=== PATIENT | female | born 1945 | race Two or more races ===

== ENCOUNTER 2024-11-26 14:48 | Inpatient (IN) | payer OTHER ==
[~2024-11-26] VITALS: Ht 157.5 cm; Wt 75.7 kg
[2024-11-26 15:28] LABS: Basophils # (auto) 0 10 ^3/uL (0-0.2); Basophils % (auto) 0.3 % (0.0-2.0); Eosinophils # (auto) 0.1 10 ^3/uL (0-0.8); Eosinophils % (auto) 1.1 % (0.0-7.0); Hematocrit 43.9 % (36.0-46.0); Hemoglobin 14.9 g/dL (12.2-16.2); Lymphocytes # (auto) 1.3 10 ^3/uL (0.4-5.4); Lymphocytes % (auto) 11.6 % (10.0-50.0); Mean Corpuscular Hgb Conc. 33.9 g/dL (32.0-36.0); Mean Corpuscular Volume 97.6 fL (80.0-100.0); Monocytes # (auto) 0.6 10 ^3/uL (0-1.3); Monocytes % (auto) 5.3 % (0.0-12.0); Neutrophils # (auto) 9.4 10 ^3/uL (1.6-8.6); Neutrophils % (auto) 81.7 % (37.0-80.0); Nucleated Red Blood Cells % 0.1 %; Platelet Count (auto) 266 10^3/uL (140-450); Red Cell Distribution Width 15.1 % (11.8-14.3); White Blood Cell 11.5 10^3/uL (4.4-10.8)
--- NOTE | 2024-11-26 15:32 | ED.PDOC ---
History of Present Illness HPI Comments 79 y/o F is BIBA from [facility]) for c/o irregular heart rate and elevated troponin levels, today. Per EMS report, patient is a transfer from [facility] after being found with irregular heart rate and elevated troponin levels during leg MRI visit for chronic right-hip issue she has had for the past 6 weeks. Patient, at time of assessment, reports only having "heart burn, currently. Prior to ED arrival, patient was stated to have not eaten anything all day, today, and was given morphine at [facility] prior to transfer. She denies having any chest pain, shortness of breath, or other associated symptoms at this time. Time Seen by MD: 15:00 Reviewed Notes: Nurses Notes, Engine Assembler Notes, Medications, Allergies Allergies: Coded Allergies: NO KNOWN ALLERGIES (Unverified , 11/26/24) Information Source: Patient, Transfer Record, Emergency Med Personnel Mode of Arrival: EMS Severity: Moderate Timing: Hours Duration: Since onset Prehospital treatment: 12 Lead EKG, Appeals Examiner Past Medical History Surgical History: Denies all surgeries REGIONAL EDUCATION COORDINATOR History: Denies all REGIONAL EDUCATION COORDINATOR Hx Family History Family History: Unknown Social History Smoker: Non-Smoker Alcohol: Denies ETOH Use Drugs: Denies Drug Use Lives In: Home All Other Systems: Reviewed and Negative (Comprehensive systems review obtained and negative except for what is stated in the HPI.) Physical Exam General Appearance: No Apparent Distress, Obese HEENT: Normal ENT Inspection, Pharynx Normal, TMs Normal Neck: Full Range of Motion, Non-Tender, Normal, Normal Inspection Respiratory: Chest Non-Tender, Lungs Clear, No Accessory Muscle Use, No Respiratory Distress, Normal Breath Sounds Cardiovascular: No Edema, No JVD, No Murmur, No Gallop, Normal Peripheral Pulses, Regular Rate/Rhythm Breast Exam: Deferred Gastrointestinal: No Organomegaly, Non Tender, No Pulsatile Mass, Normal Bowel Sounds, Soft Genitalia: Deferred Pelvic: Deferred Rectal: Deferred Extremities: No calf tenderness, Normal capillary refill, Normal inspection, Normal range of motion, Non-tender, No pedal edema Musculoskeletal : Apperance: Normal Neurologic: Alert, oil well logging engineer II-XII nml as Tested, No Motor Deficits, Normal Affect, Normal Mood, No Sensory Deficits Cerebellar Function: Normal Reflexes: Normal Skin: Dry, Normal Color, Warm Lymphatic: No Adenopathy Was a procedure done? Was a procedure done?: No Differential Dx Considerations may include: IN, PE, ACS, Arrhythmia, AFIB, among others X-Ray, Labs, Meds, VS Vital Signs Date Time Temp Pulse Resp B/P (MAP) Pulse Ox O2 Delivery O2 Flow Rate FiO2 11/26/24 19:25 92 16 92 Room Air* 0 21 11/26/24 18:00 93 18 119/67 (84) 95 11/26/24 17:51 100 11/26/24 17:08 98.5 90 14 130/87 (101) 93 98.5 11/26/24 17:08 90 14 93 Room Air* 0 21 11/26/24 15:52 94 11/26/24 14:51 88 11/26/24 14:50 97.9 92 20 190/92 (124) 94 97.9 Lab Test 11/26/24 18:19 11/26/24 16:09 11/26/24 15:17 Range/Units Troponin I High Sensitivity 206 *H 240 *H 239 *H </=34 ng/L White Blood Count 11.5 H 4.4-10.8 10^3/uL Red Blood Count 4.50 4.0-5.20 10^6/uL Hemoglobin 14.9 12.2-16.2 g/dL Hematocrit 43.9 36.0-46.0 % Mean Corpuscular Volume 97.6 80.0-100.0 fL Mean Corpuscular Hemoglobin 33.0 H 28.0-32.0 pg Mean Corpuscular Hemoglobin Concent 33.9 32.0-36.0 g/dL Red Cell Distribution Width 15.1 H 11.8-14.3 % Platelet Count 266 140-450 10^3/uL Mean Platelet Volume 7.1 6.9-10.8 fL Neutrophils (%) (Auto) 81.7 H 37.0-80.0 % Lymphocytes (%) (Auto) 11.6 10.0-50.0 % Monocytes (%) (Auto) 5.3 0.0-12.0 % Eosinophils (%) (Auto) 1.1 0.0-7.0 % Basophils (%) (Auto) 0.3 0.0-2.0 % Neutrophils # (Auto) 9.4 H 1.6-8.6 10 ^3/uL Lymphocytes # (Auto) 1.3 0.4-5.4 10 ^3/uL Monocytes # (Auto) 0.6 0-1.3 10 ^3/uL Eosinophils # (Auto) 0.1 0-0.8 10 ^3/uL Basophils # (Auto) 0 0-0.2 10 ^3/uL Nucleated Red Blood Cells 0.1 % Sodium Level 142 136-145 mmol/L Potassium Level 3.4 L 3.5-5.1 mmol/L Chloride Level 99 98-107 mmol/L Carbon Dioxide Level 36 H 20-31 mmol/L Anion Gap 7 5-15 Blood Urea Nitrogen 23 9-23 mg/dL Creatinine 0.92 0.550-1.02 mg/dL Glomerular Filtration Rate Calc 63 >90 mL/min BUN/Creatinine Ratio 25.0 H 10.0-20.0 Serum Glucose 146 H 74-106 mg/dL Calcium Level 9.4 8.7-10.4 mg/dL Time of 1ST Reevaluation: 15:30 Reevaluation 1ST: Unchanged Patient Education/Counseling: Diagnosis, Treatment Family Education/Counseling: No Family Present Additional Information Previous medical encounters reviewed: n/a The following tests were ordered, and results were reviewed by me: troponin, CXR, CBC, BMP Additional Information was gathered from interviewing the following independent historians: EMS, transferring facility provider I reviewed and agreed with the following test results read by other providers: CXR I discussed treatment and results with medical personnel and: Patient Departure 1 Departure Time of Disposition: 20:13 (Patient presenting with new onset AFib from [facility]. [facility] with a capacity so we accepted the patient. We will admit patient here for further workup and expert consultation) Impression: Primary Impression: New onset atrial fibrillation Additional Impressions: Shortness of breath Right hip pain Disposition: ADMITTED INPATIENT Admit to: Med Surg Condition: Serious Critical Care Note Critical Care Time?: No Stability Stability form required: No Heart Score Heart Score: Heart Score Response (Comments) Value History Highly Suspicious 2 EKG Normal 0 Age >65 2 Risk Factors >3 or Hx ASHD 2 Troponin 1-2 x's Normal limit 1 Total 7 I personally scribed for TIMOTHY ZAMORA MD ([email or web address]) on 11/26/24 at 15:32. Electronically submitted by Candido Prakash ([email or web address]). TIMOTHY ZAMORA MD Nov 26, 2024 15:32
[2024-11-26 15:37] LABS: Anion Gap 7 (5-15); Chloride 99 mmol/L (98-107); Sodium 142 mmol/L (136-145)
[2024-11-26 15:38] LABS: Calcium 9.4 mg/dL (8.7-10.4)
[2024-11-26 15:40] LABS: Carbon Dioxide 36 mmol/L (20-31); Potassium 3.4 mmol/L (3.5-5.1)
[2024-11-26 15:43] LABS: Blood Urea Nitrogen 23 mg/dL (9-23); Glucose 146 mg/dL (74-106)
--- NOTE | 2024-11-26 15:54 | ECG ---
[facility] Test Date: 2024-11-26 Test Time: 15:52:45 Pat Name: DALLAS SUN Department: ER Room: 0278T Gender: F Manager Web: CRISTIAN : 1945 Requested By: TIMOTHY ZAMORA Order Number: [id number] Reading MD: Alex Gongora Measurements Intervals [place] Rate: 94 P: 9 GA: 131 QRS: -61 QRSD: 130 T: 53 QT: 405 QTc: 507 Interpretive Statements Sinus rhythm Left bundle branch block Electronically Signed On 11-29-2024 20:40:32 PDT by Alex Gongora Please click the below link to view image of tracing.
--- NOTE | 2024-11-26 16:01 | DVH ---
EXAM: XY CHEST PORTABLE HISTORY: sob COMPARISON: None TECHNIQUE: Portable AP view of the chest was performed. FINDINGS: No pneumothorax, consolidative infiltrates, or pulmonary edema. The heart is not enlarged. There are postoperative changes of CABG. There is right glenohumeral osteoarthritis with prominent marginal ost eophytes extending inferiorly. The left humeral head is high-riding, consistent with significant rota tor cuff tendinopathy. There is thoracic spondylosis. There is thoracolumbar levoscoliosis. IMPRESSION: Postoperative changes of the heart without evidence of acute intrathoracic process.
[2024-11-26 17:08] VITALS: PULSE 90; RESP 14; O2SAT 93
[2024-11-26 19:25] VITALS: PULSE 92; RESP 16; O2SAT 92
[2024-11-26] MEDS: ACETAMINOPHEN 325 MG TAB PO ONE (20:24)
[2024-11-26 20:43] LABS: Urine Bacteria None Seen /hpf (None Seen)
[2024-11-26 20:50] LABS: Urine Blood Negative /uL (Negative); Urine Clarity Clear (Clear); Urine Color Colorless (Yellow); Urine Protein, UAD Negative (Negative); Urine Specific Gravity 1.009 (1.001-1.035); Urine Squamous Epithelial Cell FEW /hpf (<5); Urine Urobilinogen Normal (Negative); Urine WBC 2 /HPF (0-5); Urine pH 7.5 (5.0-9.0)
[2024-11-27] VITALS (7 sets, daily range): BP systolic 128–163; BP diastolic 69–87; PULSE 59–93; RESP 16–19; TEMP 97.5–98.6; O2SAT 93–97
[2024-11-27] MEDS ORDERED: ACETAMINOPHEN 325 MG TAB PO PRN (02:00)
--- NOTE | 2024-11-27 02:03 | DVHHPRES ---
History of Present Illness Resident Creating Document: PRAKASH CLAY RESIDENT History of Present Illness Patient is an 79-year-old female with past medical history of CABG in 2021, hypertension, depression, dyslipidemia, GERD, esophageal stricture, who was transferred from [facility] after running AFib. According to the patient, 6 weeks ago her right knee gave way and she fell to the floor without any impact, but started experiencing right-sided hip pain since then. Patient describes right hip pain as unrelenting, progressively worsening throughout the day, she notes pain is worsened with walking and relieved by bending over or leaning forward on the grocery cart. Patient she is unable to bear weight fully on her right leg due to pain. Per patient, she did not have hip fracture on the x-ray and she did have a CT scan of her hip previously and was told she has "no bone left". Per patient she has had percutaneous laser disc decompression in the past which did help initially, however, pain has returned now. Serial troponins were noted to be 239, 240, 206. Serum TSH 1.07, serum magnesium 1.8. Patient's PCP is Dr. Manrique. Past Medical History CABG in 2021, hypertension, depression, dyslipidemia, GERD, esophageal stricture Past Surgical History CABG Past Social History Skin: Denies Alcohol: 3 drinks per week Drugs: Denies Allergies: Denied Review of Systems Constitutional: No: Fever, Chills, Sweats, Weakness, Malaise, Other Eyes: No: Pain, Vision change, Conjunctivae inflammation, Eyelid inflammation, Other, Redness ENT: No: Ear pain, Ear discharge, Nose pain, Nose discharge, Nose congestion, Mouth pain, Mouth swelling, Throat pain, Throat swelling, Other Respiratory: SOB with excertion; No: Cough, Dry, Shortness of breath, Wheezing, Hemoptysis, Pleuritic Pain, Sputum, Wheezing, Other Cardiovascular: No: Chest Pain, Palpitations, Orthopnea, Paroxysmal Noc. Dy spnea, Edema, Lt Headedness, Other Gastrointestinal: Vomiting; No: Nausea, Abdominal Pain, Diarrhea, Constipation, Melena, Hematochezia, Other Genitourinary: No Dysuria, No Frequency, No Incontinence, No Hematuria, No Retention, No Other Musculoskeletal: No: other, neck pain, shoulder pain, arm pain, back pain, hand pain, leg pain, foot pain Skin: No: Rash, Lesions, Jaundice, Bruising, Other Neurological: No: Weakness, Numbness, Incoordination, Change in speech, Confusion, Seizures, Other Allergies: Coded Allergies: NO KNOWN ALLERGIES (Unverified , 11/26/24) Medications Current Medications Medications Dose Ordered Sig/Srinivasa Route Start Time Stop Time Status Last Admin Dose Admin Apixaban 5 mg BID PO 11/27/24 10:00 UNV Acetaminophen 650 mg Q6HP PRN PO 11/27/24 02:00 UNV Exam Vital Signs Vital Signs Date Time Temp Pulse Resp B/P (MAP) Pulse Ox O2 Delivery O2 Flow Rate FiO2 11/27/24 00:05 97.9 92 15 109/62 (78) 96 97.9 11/26/24 19:25 Room Air* 0 21 General Appearance: Alert, Oriented X3, Cooperative, mild distress HEENT: Atraumatic, PERRLA, EOMI Respiratory: Clear to auscultation, Normal air movement Cardiovascular: Regular rate, Normal S1, Normal S2 Abdominal: Normal bowel sounds, Soft Extremities: No edema Skin: No rashes, No significant lesion Neuro: Other (tenderness to palpation along the right hip, right straight leg raise test negative) Psych/Mental Status: Mental status NL, Mood NL Labs/Xrays Labs Test 11/26/24 19:23 11/26/24 18:19 11/26/24 15:17 Range/Units Urine Color Colorless Yellow Urine Clarity Clear Clear Urine pH 7.5 5.0-9.0 Urine Specific [place] 1.009 1.001-1.035 Urine Protein Negative Negative Urine Ketones Negative Negative Urine Blood Negative Negative /uL Urine Nitrite Negative Negative Urine Bilirubin Negative Negative Urine Urobilinogen Normal Negative mg/dL Urine Leukocyte Esterase Negative Negative /uL Urine RBC 2 0 - 4 /hpf Urine Microscopic WBC 2 0-5 /HPF Urine Squamous Epithelial Cells Few <5 /hpf Urine Bacteria None seen None Seen /hpf Urine Glucose Normal Normal mg/dL Troponin I High Sensitivity 206 *H </=34 ng/L White Blood Count 11.5 H 4.4-10.8 10^3/uL Red Blood Count 4.50 4.0-5.20 10^6/uL Hemoglobin 14.9 12.2-16.2 g/dL Hematocrit 43.9 36.0-46.0 % Mean Corpuscular Volume 97.6 80.0-100.0 fL Mean Corpuscular Hemoglobin 33.0 H 28.0-32.0 pg Mean Corpuscular Hemoglobin Concent 33.9 32.0-36.0 g/dL Red Cell Distribution Width 15.1 H 11.8-14.3 % Platelet Count 266 140-450 10^3/uL Mean Platelet Volume 7.1 6.9-10.8 fL Neutrophils (%) (Auto) 81.7 H 37.0-80.0 % Lymphocytes (%) (Auto) 11.6 10.0-50.0 % Monocytes (%) (Auto) 5.3 0.0-12.0 % Eosinophils (%) (Auto) 1.1 0.0-7.0 % Basophils (%) (Auto) 0.3 0.0-2.0 % Neutrophils # (Auto) 9.4 H 1.6-8.6 10 ^3/uL Lymphocytes # (Auto) 1.3 0.4-5.4 10 ^3/uL Monocytes # (Auto) 0.6 0-1.3 10 ^3/uL Eosinophils # (Auto) 0.1 0-0.8 10 ^3/uL Basophils # (Auto) 0 0-0.2 10 ^3/uL Nucleated Red Blood Cells 0.1 % Sodium Level 142 136-145 mmol/L Potassium Level 3.4 L 3.5-5.1 mmol/L Chloride Level 99 98-107 mmol/L Carbon Dioxide Level 36 H 20-31 mmol/L Anion Gap 7 5-15 Blood Urea Nitrogen 23 9-23 mg/dL Creatinine 0.92 0.550-1.02 mg/dL Glomerular Filtration Rate Calc 63 >90 mL/min BUN/Creatinine Ratio 25.0 H 10.0-20.0 Serum Glucose 146 H 74-106 mg/dL Calcium Level 9.4 8.7-10.4 mg/dL Assessment/Plan Assessment/Plan Atrial fibrillation, unspecified onset, possibly triggered by right hip pain; chads Vasc 5 NSTEMI type 2 possibly due to above QTC prolongation on EKG Left atrial enlargement on EKG Coronary artery disease s/p CABG 2021 Hypertension Dyslipidemia - serial troponins 239, 240, 206 - Eliquis 5 mg p.o. b.i.d. - cardiology consulted - holding antihypertensives due to soft blood pressure - fall precautions in place - cardiac diet Right hip pain secondary to spinal stenosis? - acetaminophen 650 mg q.6 as needed - Aspercreme topical application to the affected area q.6 as needed - PT evaluation GERD Esophageal stricture - Protonix 40 mg p.o. daily Depression, likely MDD - patient is on high-dose venlafaxine at home, currently holding owing to possible new onset AFib PUD prophylaxis: protonix 40mg Goals of care: Full code, discussed for >16 minutes on 11/27/24 Plan discussed with patient Plan discussed with Dr. Olson Plan discussed with: Patient, Other (RN) My Orders Orders - PRAKASH CLAY RESIDENT Procedure Category Date Status Time Admit ADMIT 11/27/24 Transmitted 01:51 Allergies AGUSTINA 11/27/24 In Process 01:51 Code Status CODE 11/27/24 Transmitted 01:51 Complete Blood Count LAB 11/28/24 Verified 04:00 Comprehensive LAB 11/28/24 Verified Metabolic Panel 04:00 Cardiac DIET 11/27/24 Transmitted Diet-2gna,Lofat,Lochol Breakfast Pt Request For Service PT 11/27/24 Logged 01:51 Condition: Unstable AGUSTINA 11/27/24 In Process 01:51 Notify Of Changes AGUSTINA 11/27/24 In Process From Base 01:51 * Cardiology Consult CONS 11/27/24 Transmitted 01:51 Prothrombin Time W/ LAB 11/27/24 Logged INR 01:51 Fall Precautions AGUSTINA 11/27/24 In Process Initiated 01:51 Apixaban (Eliquis) PHA 11/27/24 Logged 10:00 Acetaminophen Tablet PHA 11/27/24 Logged (Tylenol Tablet) 02:00 Thyroid Stimulating LAB 11/27/24 Logged Hormone 02:01 Magnesium LAB 11/27/24 Logged 02:01 Pantoprazole Tablet PHA 11/27/24 Verified (Protonix Tablet) 06:00 Date of Service: Nov 27, 2024 Billing Provider: EMILY OLSON MD Common Visit Codes: [id number] INP/OBS CARE (HIGH) PRAKASH CLAY RESIDENT Nov 27, 2024 02:03 EMILY OLSON MD Dec 03, 2024 22:10
[2024-11-27] MEDS ORDERED: TROLAMINE SALICYLATE 10% TOP CREAM TOP PRN (02:45)
[2024-11-27 03:17] LABS: INR 0.97 (0.9-1.15); Prothrombin Time 10.3 sec (9.3-11.8)
[2024-11-27] MEDS: PANTOPRAZOLE 40 MG TAB PO SCH ×2 (05:18→09:35)
[2024-11-27] MEDS ORDERED: AMLO1TAB22 PO (06:45)
[2024-11-27] MEDS ORDERED: VALS1TAB59 PO (06:45)
[2024-11-27] MEDS ORDERED: FURO40TA4 PO (06:45)
[2024-11-27] MEDS ORDERED: LOSA-535 PO (06:45)
[2024-11-27] MEDS ORDERED: PANT40T PO (06:45)
[2024-11-27] MEDS ORDERED: HYDR12.55 PO (06:45)
[2024-11-27] MEDS ORDERED: VENL150T34 PO (06:45)
[2024-11-27] MEDS ORDERED: BACL10TA PO (06:45)
[2024-11-27] MEDS ORDERED: METO-289 PO (06:45)
[2024-11-27] MEDS ORDERED: LEVO50TA7 PO (06:45)
[2024-11-27] MEDS ORDERED: [UNRECOGNIZED DRUG - CODE] PO (06:45)
[2024-11-27] MEDS ORDERED: ATOR40TA52 PO (06:45)
--- NOTE | 2024-11-27 09:03 | DVHINCON2 ---
Date Seen: Nov 27, 2024 Referring Physician MD Fabricio resident Reason for Consultation Afib History of Present Illness This is an 79-year-old female patient who initially presented to [facility] for right hip pain. The patient reports that approximately five weeks ago she was putting away some groceries when her leg gave out from under her, thus causing her to sustained a mechanical fall and landing on her right hip. She reports that she went to the emergency room that same day to get an x-ray and was told there was no broken bones. She has had pain since this time. She decided to go back to the emergency room for follow up and further scans. Per reports, the patient was found to be in atrial fibrillation at that time and was sent to this facility for further evaluation. Can not confirm atrial fibrillation due to no twelve lead electrocardiogram from [facility] found in patient's chart. Initial twelve lead electrocardiogram done at this facility reveals normal sinus rhythm with PACs. Initial troponin level of 239ng/L with flat trend thereafter. The patient denies any cardiac symptoms such as chest pain, palpitations, or shortness of breath. It was worth noting that the patient came in with a blood pressure reaching as high as 190/92. Significant past medical history includes severe coronary artery disease status post triple-vessel CABG in 2021, hypertension, dyslipidemia, thyroid disease, arthritis and obesity. The patient follows up with geothermal electrical engineer in the outpatient setting. Past Medical History Past medical history reviewed. No other significant than mentioned above. Past Surgical History Triple-vessel CABG in 2021 Right shoulder surgery Appendectomy Tonsillectomy Family History: FH: cancer G8 MOTHER Hypertension G8 FATHER G8 BROTHER Family History Family history reviewed. Social History Denies the use of tobacco, alcohol or illicit drugs. Allergies: Coded Allergies: NO KNOWN ALLERGIES (Unverified , 11/26/24) Home Meds Reported Medications Valsartan (Valsartan) 320 Mg Tab, 1 TAB PO DAILY 11/27/24 Pantoprazole Sodium Sesquihydr (Pantoprazole Sodium) 40 Mg Tab, 1 TAB PO DAILY 11/27/24 Amlodipine Besylate (Amlodipine Besylate) 5 Mg Tab, 1 TAB PO DAILY 11/27/24 Baclofen (Baclofen) 10 Mg Tab, 1 TAB PO Q8H 11/27/24 Venlafaxine Hcl (Venlafaxine Hcl Er) 150 Mg Tab, 1 TAB PO DAILY 11/27/24 Furosemide (Furosemide) 40 Mg Tab, 1 TAB PO DAILY 11/27/24 Metoprolol Succinate (Metoprolol Succinate Er) 50 Mg Tab, 1 TAB PO DAILY 11/27/24 Atorvastatin Calcium (ATORVASTATIN CALCIUM) 40 Mg Tab, 1 TAB PO DAILY 11/27/24 Venlafaxine Hcl (Venlafaxine Hcl Er) 75 Mg Tab, 1 TAB PO DAILY 11/27/24 Hydrochlorothiazide (Hydrochlorothiazide) 12.5 Mg Tab, 1 TAB PO DAILY 11/27/24 Losartan Potassium (Losartan Potassium) 100 Mg Tab, 1 TAB PO DAILY 11/27/24 Levothyroxine Sodium (Levothyroxine Sodium) 50 Mcg Tab, 1 TAB PO DAILY 11/27/24 Home Meds Home medications reviewed. Current Medications Current Medications Medications (Trade) Dose Ordered Sig/Srinivasa Route PRN Reason Start Time Stop Time Status Last Admin Apixaban (Eliquis) 5 mg BID PO 11/27/24 10:00 11/27/24 08:42 DC Acetaminophen (Tylenol Tablet) 650 mg Q6HP PRN PO MODERATE PAIN (4-6 PAIN SCALE) 11/27/24 02:00 Pantoprazole Sodium (Protonix Tablet) 40 mg DAILY@0600 PO 11/27/24 06:00 11/27/24 05:18 Trolamine Salicylate (Aspercreme Topical) 1 applic Q6HP PRN TOP MILD PAIN (1-3 PAIN SCALE) 11/27/24 02:45 Levothyroxine Sodium (Synthroid Tablet) 50 mcg DAILY PO 11/27/24 10:00 UNV Amlodipine Besylate (Norvasc Tablet) 5 mg DAILY PO 11/27/24 10:00 UNV Metoprolol Succinate (Toprol Xl) 50 mg DAILY PO 11/27/24 10:00 UNV Pantoprazole Sodium (Protonix Tablet) 40 mg DAILY PO 11/27/24 10:00 UNV Patient Own Medication 1 tab DAILY PO 11/27/24 10:00 UNV Lidocaine (Lidoderm 5% Topical Patch) 1 patch DAILY TOP 11/27/24 10:00 UNV Enoxaparin Sodium (Lovenox) 70 mg Q12HR SC 11/27/24 10:00 UNV Review of Systems Constitutional: No symptom reported Ears, Nose, & Throat: No symptom reported Eyes: No symptom reported Neurological: No symptoms reported Pulmonary/Respiratory: No symptoms reported Cardiovascular: No symptom reported Gastrointestinal: No symptom reported Genitourinary: No symptom reported Musculoskeletal: Right hip pain Skin: No symptom reported Psychiatric: No symptom reported Endocrine: No symptom reported Hematologic/Lymphatic: No symptom reported Vital Signs Vital Signs Date Time Temp Pulse Resp B/P (MAP) Pulse Ox O2 Delivery O2 Flow Rate FiO2 11/27/24 04:43 97.5 87 19 128/76 (93) 93 97.5 11/27/24 04:43 Room Air* 0 21 Physical Exam General Appearance: Cooperative. Well-developed. Well-nourished. No acute distress. Pulmonary/Respiratory: Clear, bilateral breaths sounds. Cardiovascular/Chest: Regular rate and rhythm. Peripheral Pulses: 2+ Radial (R). 2+ Radial (L). 2+ Pedal (R). 2+ Pedal (L) Abdominal Exam: Normal bowel sounds. Ankle Exam: Negative ankle edema Lower extremities: Negative lower extremity edema Neuro/Mental Status: A/OX4, coherent. Thoughts/Psych: Normal thought pattern. Appropriate mood and affect. Good judgment and insight. Appearance: No acute distress. Skin Exam: Normal inspection. Normal color. Warm and dry. Labs/Diagnostic Data Labs Test 11/27/24 02:13 11/26/24 19:23 11/26/24 18:19 11/26/24 15:17 Range/Units Prothrombin Time 10.3 9.3-11.8 sec Prothrombin Time INR 0.97 0.9-1.15 Magnesium Level 1.8 1.6-2.6 mg/dL Thyroid Stimulating Hormone (TSH) 1.07 0.55-4.78 uIU/mL Urine Color Colorless Yellow Urine Clarity Clear Clear Urine pH 7.5 5.0-9.0 Urine Specific [place] 1.009 1.001-1.035 Urine Protein Negative Negative Urine Ketones Negative Negative Urine Blood Negative Negative /uL Urine Nitrite Negative Negative Urine Bilirubin Negative Negative Urine Urobilinogen Normal Negative mg/dL Urine Leukocyte Esterase Negative Negative /uL Urine RBC 2 0 - 4 /hpf Urine Microscopic WBC 2 0-5 /HPF Urine Squamous Epithelial Cells Few <5 /hpf Urine Bacteria None seen None Seen /hpf Urine Glucose Normal Normal mg/dL Troponin I High Sensitivity 206 *H </=34 ng/L White Blood Count 11.5 H 4.4-10.8 10^3/uL Red Blood Count 4.50 4.0-5.20 10^6/uL Hemoglobin 14.9 12.2-16.2 g/dL Hematocrit 43.9 36.0-46.0 % Mean Corpuscular Volume 97.6 80.0-100.0 fL Mean Corpuscular Hemoglobin 33.0 H 28.0-32.0 pg Mean Corpuscular Hemoglobin Concent 33.9 32.0-36.0 g/dL Red Cell Distribution Width 15.1 H 11.8-14.3 % Platelet Count 266 140-450 10^3/uL Mean Platelet Volume 7.1 6.9-10.8 fL Neutrophils (%) (Auto) 81.7 H 37.0-80.0 % Lymphocytes (%) (Auto) 11.6 10.0-50.0 % Monocytes (%) (Auto) 5.3 0.0-12.0 % Eosinophils (%) (Auto) 1.1 0.0-7.0 % Basophils (%) (Auto) 0.3 0.0-2.0 % Neutrophils # (Auto) 9.4 H 1.6-8.6 10 ^3/uL Lymphocytes # (Auto) 1.3 0.4-5.4 10 ^3/uL Monocytes # (Auto) 0.6 0-1.3 10 ^3/uL Eosinophils # (Auto) 0.1 0-0.8 10 ^3/uL Basophils # (Auto) 0 0-0.2 10 ^3/uL Nucleated Red Blood Cells 0.1 % Sodium Level 142 136-145 mmol/L Potassium Level 3.4 L 3.5-5.1 mmol/L Chloride Level 99 98-107 mmol/L Carbon Dioxide Level 36 H 20-31 mmol/L Anion Gap 7 5-15 Blood Urea Nitrogen 23 9-23 mg/dL Creatinine 0.92 0.550-1.02 mg/dL Glomerular Filtration Rate Calc 63 >90 mL/min BUN/Creatinine Ratio 25.0 H 10.0-20.0 Serum Glucose 146 H 74-106 mg/dL Calcium Level 9.4 8.7-10.4 mg/dL Assessment Rule out cardiac arrhythmia Hypertensive urgency NSTEMI, likely type II secondary to above Severe coronary artery disease status post triple-vessel CABG in 2021 Rule out structural heart disease Dyslipidemia Thyroid disease Obesity Plan/Recommendation We will continue with the following plan/recommendations (Dr. Gongora): We will proceed with obtaining a transthoracic echocardiogram to evaluate cardiac function. At this time, no evidence of atrial fibrillation seen on twelve lead electrocardiograms or nuclear monitoring technician. Patient is in normal sinus rhythm with PACs on nuclear monitoring technician. Unable to confirm if the patient was ever in atrial fibrillation at [facility], given that the patient's paperwork from that facility was not available in her chart. Continue with close cardiac surveillance, notify Cardiology for any ECG changes. We will continue to monitor closely. Thank you for allowing us to care for this patient. Please call with any questions or concerns. Critical care time spent: 40 minutes This medical document was created using an electronic medical record system with voice recognition software and computerized dictation system. Although this document has been carefully reviewed, there might still be some phonetic and typographical errors. Occasional wrong-word or ``sound-alike substitutions may have occurred due to the inherent limitations of voice recognition software. These areas are purely typographical due to imperfections of the software programs and do not reflect any compromise in the patient's medical care. Please read the chart carefully and recognize, using context, where these substitutions have occurred. Plan discussed with: Patient NYHA Physical activity limitations: NA Date of Service: Nov 27, 2024 Billing Provider: IVONNE ROMAN Cardiology Common Codes: [id number] INP/OBS CARE (High) Cardiology Consultation Codes: [id number] CONSULT <45MIN IVONNE ROMAN Nov 27, 2024 09:03
[2024-11-27] MEDS: MAGNESIUM SULFATE 1GM/100ML 100 ML IV ONE (09:54)
[2024-11-27] MEDS: LIDOCAINE 5% TOPICAL PATCH TOP SCH (09:55)
[2024-11-27] MEDS: ENOXAPARIN SOD 80 MG/0.8ML SYRINGE SC SCH (09:55)
[2024-11-27] MEDS: METOPROLOL SUCCINATE XL 50 MG TAB PO SCH (09:57)
[2024-11-27] MEDS: LEVOTHYROXINE SODIUM 50 MCG TAB PO SCH (09:58)
[2024-11-27] MEDS: amLODIPine BESYLATE 5 MG TAB PO SCH (09:58)
[2024-11-27] MEDS ORDERED: ENOXAPARIN SOD 100 MG/1 ML SYRINGE SC SCH (10:00)
[2024-11-27] MEDS ORDERED: PATIENTS OWN MEDICATION (Atorvastatin Calcium 1 TAB) PO SCH (10:00)
[2024-11-27] MEDS ORDERED: APIXABAN 5 MG TAB PO SCH (10:00)
[2024-11-27] MEDS: POTASSIUM CHL 20 Meq TABLET PO ONE (14:28)
--- NOTE | 2024-11-27 15:11 | DVH ---
EXAM: XY R KNEE 2V XRAY CLINICAL INDICATION: OA/Fracture TECHNIQUE: XY R KNEE 2V XRAY Comparison: None FINDINGS/IMPRESSION: There is no evidence of acute fracture or dislocation. Moderate right knee osteoarthritis The alignment is anatomical. There is no radiopaque foreign body.
--- NOTE | 2024-11-27 15:14 | DVH ---
EXAM: XY R HIP COMPLETE XRAY CLINICAL INDICATION: FRACTURE/OA TECHNIQUE: XY R HIP COMPLETE XRAY Comparison: None FINDINGS/IMPRESSION: There is no evidence of acute fracture or dislocation. Moderate bilateral hip osteoarthritis. The alignment is anatomical. There is no radiopaque foreign body.
--- NOTE | 2024-11-27 17:53 | DVHPNRES ---
Progress Note Date Seen: Nov 27, 2024 Resident Creating Document: SP ROMAN RESIDENT Medical Necessity Reason Pt with a Central, PICC or Fol: No Subjective Review of Systems Patient is an 79-year-old female with past medical history of CABG in 2021, hypertension, depression, dyslipidemia, GERD, history of osteoarthritis, esophageal stricture, who was transferred from [facility] due to atrial fibrillation. Patient went to [facility] for worsening right knee pain. As per patient she had a episode of right leg gave up for which she had worked up and no fracture was found but her pain was getting worse. That is why she went to [facility] but during hospital course she was found to have atrial fibrillation and was transferred to [facility]. Initial lab workup revealed leukocytosis WBC 11.5, mild hypo kalemia with potassium 3.4, troponin I 239> 240> 206. X-ray of the right knee negative for acute fracture. X-ray hip revealed bilateral hip osteoarthritis. CXR revealed-Postoperative changes of the heart without evidence of acute intrathoracic process. PMH-CABG in 2021, hypertension, depression, dyslipidemia, GERD, history of osteoarthritis, esophageal stricture PSH- CABG Allergy-NKDA Personal History/ Social History- drinks alcohol Patient was seen today at the bedside. Cardiovascular- deny acute chest pain or shortness of breath or cough or palpitation Respiratory denies cough or short of breath or wheezing Gastrointestinal- denies any rectal bleeding, nausea or vomiting Musculoskeletal-denies acute joint swelling or tenderness or redness Neurological- denies acute dysarthria, dysphagia, change in vision Psychiatry- denies depression or SI or HI Skin- denies acute rash or purpura Patient was seen today for clinical evaluation. Labs and chart reviewed. Patient was seen by electric meter setter, recommendation reviewed and appreciated. Patient was put on Lovenox 70 b.i.d.. Pending echo 2D report. Objective vital signs Vital Sign Date Time Temp Pulse Resp B/P (MAP) Pulse Ox O2 Delivery O2 Flow Rate FiO2 11/27/24 12:40 98.6 59 16 152/86 (108) 93 98.6 11/27/24 08:00 Room Air* 0 21 Total Intake and Output 11/26/24 11/26/24 11/27/24 15:00 23:00 07:00 Intake Total 150 ml Output Total 150 ml Balance 0 ml medications Current Medications Medications Dose Ordered Sig/Srinivasa Route Start Time Stop Time Status Last Admin Dose Admin Acetaminophen 650 mg Q6HP PRN PO 11/27/24 02:00 Pantoprazole Sodium 40 mg DAILY@0600 PO 11/27/24 06:00 11/27/24 05:18 40 MG Trolamine Salicylate 1 applic Q6HP PRN TOP 11/27/24 02:45 Levothyroxine Sodium 50 mcg DAILY PO 11/27/24 10:00 11/27/24 09:58 50 MCG Amlodipine Besylate 5 mg DAILY PO 11/27/24 10:00 11/27/24 09:58 5 MG Metoprolol Succinate 50 mg DAILY PO 11/27/24 10:00 11/27/24 09:57 50 MG Patient Own Medication 1 tab DAILY PO 11/27/24 10:00 UNV Lidocaine 1 patch DAILY TOP 11/27/24 10:00 11/27/24 09:55 1 PATCH Enoxaparin Sodium 70 mg Q12HR SC 11/27/24 10:00 UNV Enoxaparin Sodium 70 mg BID SC 11/27/24 10:00 11/27/24 09:55 70 MG Atorvastatin Calcium 40 mg HS PO 11/27/24 22:00 Examination General examination- HEENT- PEERLA, no acute nasal discharge Cardiovascular- S1-S2 audible, rate and rhythm regular, no murmur Respiratory- CTAB, no wheeze or rhonchi Gastrointestinal-nontender, bowel sound+. Nondistended Musculoskeletal-no acute joint swelling or tenderness or redness Lower extremity- Neurological- cranial nerves intact, no acute dysarthria or dysphagia Psychiatry- denies depression or SI or HI Skin- no acute rash or purpura laboratory and microbiology Laboratory Tests 11/26/24 15:17 Test 11/26/24 15:17 Range/Units Serum Glucose 146 H 74-106 mg/dL Problem List/Assessment/Plan Problem List/Assessment/Plan Assessment and plan # atrial fibrillation with rapid ventricular rate-reverted to sinus rhythm -continue Lovenox 70 b.i.d. -continue metoprolol 50 mg p.o. daily -pending echo 2D report #Hypertensive urgency -continue metoprolol 50 mg p.o. daily -amlodipine 5 mg p.o. daily -monitor BP #NSTEMI, likely type II secondary to above -continue metoprolol 50 mg p.o. daily -atorvastatin 40 mg p.o. q.h.s. -amlodipine 5 mg p.o. daily #Severe coronary artery disease status post triple-vessel CABG in 2021 -continue current manage #Rule out structural heart disease -pending echo 2D report #Dyslipidemia -continue atorvastatin 40 mg p.o. q.d. #Thyroid disease -continue levothyroxine 50 mg p.o. q.d. #Obesity -patient was counseled about the effect of obesity on health # osteoarthritis of bilateral hip -continue Tylenol p.r.n. as prescribed Goals of care, Code status ; discussed with >15 minutes PUD prophylaxis: Pantoprazole DVT prophylaxis: Lovenox Plan discussed with Dr. Vang , nursing staff, patient Total time spent on patient evaluation, chart review, assessment and plan, discussion discussion >35 minutes Plan discussed with: Other (RN) My Orders My Orders Orders - SP ROMAN Procedure Category Date Status Time Drug Screen LAB 11/27/24 Logged 07:55 Covid19 Antigen Jory LAB 11/27/24 Logged Rapid Influenza A&B LAB 11/27/24 Logged 07:55 Levothyroxine Tablet PHA 11/27/24 In Process (Synthroid Tablet) 10:00 Amlodipine Tablet PHA 11/27/24 In Process (Norvasc Tablet) 10:00 Metoprolol Xl PHA 11/27/24 In Process Succinate (Toprol Xl) 10:00 Atorvastatin (Lipitor) PHA 11/27/24 In Process 22:00 R Knee 2v Xray XY 11/27/24 Resulted 13:33 R Hip Complete Xray XY 11/27/24 Resulted 13:33 Date of Service: Nov 27, 2024 Billing Provider: ADDIE PARRA MD Common Visit Codes: [id number] INP/OBS CARE(HIGH) SP ROMAN Nov 27, 2024 17:53 ADDIE PARRA MD Dec 02, 2024 15:06
[2024-11-27] MEDS: ATORVASTATIN 20 MG TAB PO SCH (21:57)
[2024-11-28] VITALS (8 sets, daily range): BP systolic 124–157; BP diastolic 69–96; PULSE 62–107; RESP 15–18; TEMP 97.5–98.4; O2SAT 91–96
[2024-11-28 01:53] LABS: COVID19 ANTIGEN SOFIA FIA NEGATIVE (NEGATIVE); Rapid Influenza A Negative (Negative); Rapid Influenza B Negative (Negative)
[2024-11-28] MEDS: HYDROcodone-ACET 5/325MG TAB PO PRN (06:05)
[2024-11-28 07:23] LABS: Hematocrit 36.9 % (36.0-46.0); Mean Corpuscular Hemoglobin 34.4 pg (28.0-32.0); Mean Corpuscular Hgb Conc. 35.1 g/dL (32.0-36.0); Mean Corpuscular Volume 97.9 fL (80.0-100.0); Platelet Count (auto) 237 10^3/uL (140-450); Red Blood Cells 3.77 10^6/uL (4.0-5.20); Red Cell Distribution Width 15.3 % (11.8-14.3)
[2024-11-28 07:29] LABS: Basophils % (manual) 0 (0.0-2.0); Blast Cells 0; Myelocytes % 0; Promyelocytes % 0; Reactive Lymphocytes 0
[2024-11-28 07:46] LABS: Alanine Aminotransferase 23 U/L (7-40); Alkaline Phosphatase 73 U/L (46-116); Anion Gap 9 (5-15); BUN/Creatinine Ratio 27.3 (10.0-20.0); Calcium 9.1 mg/dL (8.7-10.4); Carbon Dioxide 30 mmol/L (20-31); Chloride 101 mmol/L (98-107); Magnesium 2.2 mg/dL (1.6-2.6); Potassium 3.7 mmol/L (3.5-5.1); Sodium 140 mmol/L (136-145)
[2024-11-28 07:47] LABS: Albumin 3.6 g/dL (3.2-4.8); Aspartate Aminotransferase 19 U/L (13-40); Bilirubin, Total 0.5 mg/dL (0.2-1.0)
[2024-11-28 07:48] LABS: Blood Urea Nitrogen 24 mg/dL (9-23); Glucose 126 mg/dL (74-106); Total Protein 5.5 g/dL (5.7-8.2)
[2024-11-28 08:10] LABS: Triglycerides 166 mg/dL (< 150)
[2024-11-28 08:11] LABS: Cholesterol 208 mg/dL (< 200); LDL Cholesterol 127 mg/dL (< 100)
[2024-11-28 08:13] LABS: HDL Cholesterol 63 mg/dL (40-59)
[2024-11-28 11:35] LABS: Band Neutrophils % (manual) 5; Eosinophils % (manual) 2 (0-7); Lymphocytes % (manual) 12 (10.0-50.0); Metamyelocytes % 3; Monocytes % (manual) 3 (0-12); Platelet Estimate Adequate
--- NOTE | 2024-11-28 12:49 | DVHPN2 ---
Consult Progress Note Subjective Other Systems: Normal sinus rhythm with PACs on clinical research monitor Denies any cardiac symptoms Objective vital signs Vital Sign Date Time Temp Pulse Resp B/P (MAP) Pulse Ox O2 Delivery O2 Flow Rate FiO2 11/28/24 09:10 95 157/90 11/28/24 08:00 18 96 Room Air* 0 21 11/28/24 05:00 97.8 97.8 Total Intake and Output 11/27/24 11/27/24 11/28/24 15:00 23:00 07:00 Intake Total 1632 ml 475 ml Balance 1632 ml 475 ml medications Current Medications Medications Dose Ordered Sig/Srinivasa Route Start Time Stop Time Status Last Admin Dose Admin Acetaminophen 650 mg Q6HP PRN PO 11/27/24 02:00 Pantoprazole Sodium 40 mg DAILY@0600 PO 11/27/24 06:00 11/28/24 05:59 40 MG Trolamine Salicylate 1 applic Q6HP PRN TOP 11/27/24 02:45 Levothyroxine Sodium 50 mcg DAILY PO 11/27/24 10:00 11/28/24 09:10 50 MCG Amlodipine Besylate 5 mg DAILY PO 11/27/24 10:00 11/28/24 09:10 5 MG Metoprolol Succinate 50 mg DAILY PO 11/27/24 10:00 11/28/24 09:10 50 MG Patient Own Medication 1 tab DAILY PO 11/27/24 10:00 UNV Lidocaine 1 patch DAILY TOP 11/27/24 10:00 11/28/24 09:11 1 PATCH Enoxaparin Sodium 70 mg Q12HR SC 11/27/24 10:00 UNV Enoxaparin Sodium 70 mg BID SC 11/27/24 10:00 11/28/24 09:11 70 MG Atorvastatin Calcium 40 mg HS PO 11/27/24 22:00 11/27/24 21:57 40 MG Acetaminophen/ Hydrocodone Bitart 1 tab Q4HPRN PRN PO 11/27/24 22:45 11/28/24 10:17 1 TAB Patient Own Medication 1 DAILY PO 11/29/24 10:00 UNV Examination: GENERAL:Normal, LUNGS:Normal, CVS:Normal, NEURO:Normal laboratory and microbiology Laboratory Tests 11/28/24 05:03 Test 11/28/24 05:03 Range/Units Serum Glucose 126 H 74-106 mg/dL Problem List/Assessment/Plan Problem List/Assessment/Plan Rule out cardiac arrhythmia Hypertensive urgency NSTEMI, likely type II secondary to above Severe coronary artery disease status post triple-vessel CABG in 2021 Rule out structural heart disease Dyslipidemia Thyroid disease Obesity Plan/Recommendation (Dr. Gongora): We will proceed with obtaining a transthoracic echocardiogram to evaluate cardiac function. At this time, no evidence of atrial fibrillation seen on twelve lead electrocardiograms or clinical research monitor. Patient is in normal sinus rhythm with PACs on clinical research monitor. Unable to confirm if the patient was ever in atrial fibrillation at [facility], given that the patient's paperwork from that facility was not available in her chart. Continue with close cardiac surveillance, notify Cardiology for any ECG changes. If no evidence of atrial fibrillation found on this admission, we will recommend for patient to follow up with Cardiology in the outpatient setting for event monitor. Patient states that she sees anvil worker in the outpatient setting. Continue with blood pressure control, single antiplatelet therapy and lipid-lowering agent. We will continue to monitor closely. Thank you for allowing us to care for this patient. Please call with any questions or concerns. This medical document was created using an electronic medical record system with voice recognition software and computerized dictation system. Although this document has been carefully reviewed, there might still be some phonetic and typographical errors. Occasional wrong-word or ``sound-alike substitutions may have occurred due to the inherent limitations of voice recognition software. These areas are purely typographical due to imperfections of the software programs and do not reflect any compromise in the patient's medical care. Please read the chart carefully and recognize, using context, where these substitutions have occurred. Plan discussed with: Patient Date of Service: Nov 28, 2024 Billing Provider: IVONNE ROMAN Common Visit Codes: [id number] INP/OBS CARE(HIGH) IVONNE ROMAN Nov 28, 2024 12:49
--- NOTE | 2024-11-28 14:48 | DVHPNRES ---
Progress Note Date Seen: Nov 28, 2024 Resident Creating Document: SP ROMAN RESIDENT Medical Necessity Reason Pt with a Central, PICC or Fol: No Subjective Review of Systems Patient is an 79-year-old female with past medical history of CABG in 2021, hypertension, depression, dyslipidemia, GERD, history of osteoarthritis, esophageal stricture, who was transferred from [facility] due to atrial fibrillation. Patient went to [facility] for worsening right knee pain. As per patient she had a episode of right leg gave up for which she had worked up and no fracture was found but her pain was getting worse. That is why she went to [facility] but during hospital course she was found to have atrial fibrillation and was transferred to [facility]. Initial lab workup revealed leukocytosis WBC 11.5, mild hypo kalemia with potassium 3.4, troponin I 239> 240> 206. TG 166, cholesterol 208, LDL 127, HDL 63, TSH 1.07, HGB A1c 7.2 P X-ray of the right knee negative for acute fracture. X-ray hip revealed bilateral hip osteoarthritis. CXR revealed-Postoperative changes of the heart without evidence of acute intrathoracic process. PMH-CABG in 2021, hypertension, depression, dyslipidemia, GERD, history of osteoarthritis, esophageal stricture PSH- CABG Allergy-NKDA Personal History/ Social History- drinks alcohol Patient was seen today at the bedside. Cardiovascular- deny acute chest pain or shortness of breath or cough or palpitation Respiratory denies cough or short of breath or wheezing Gastrointestinal- denies any rectal bleeding, nausea or vomiting Musculoskeletal-denies acute joint swelling or tenderness or redness Neurological- denies acute dysarthria, dysphagia, change in vision Psychiatry- denies depression or SI or HI Skin- denies acute rash or purpura Patient was seen today for clinical evaluation. Labs and chart reviewed. Patient was seen by special loan officer, recommendation reviewed and appreciated. Patient was put on Lovenox 70 b.i.d.. Pending echo 2D report. Objective vital signs Vital Sign Date Time Temp Pulse Resp B/P (MAP) Pulse Ox O2 Delivery O2 Flow Rate FiO2 11/28/24 13:00 97.9 83 16 137/77 (97) 96 97.9 11/28/24 08:00 Room Air* 0 21 Total Intake and Output 11/27/24 11/27/24 11/28/24 14:59 22:59 06:59 Intake Total 1632 ml 475 ml Balance 1632 ml 475 ml medications Current Medications Medications Dose Ordered Sig/Srinivasa Route Start Time Stop Time Status Last Admin Dose Admin Acetaminophen 650 mg Q6HP PRN PO 11/27/24 02:00 Pantoprazole Sodium 40 mg DAILY@0600 PO 11/27/24 06:00 11/28/24 05:59 40 MG Trolamine Salicylate 1 applic Q6HP PRN TOP 11/27/24 02:45 Levothyroxine Sodium 50 mcg DAILY PO 11/27/24 10:00 11/28/24 09:10 50 MCG Amlodipine Besylate 5 mg DAILY PO 11/27/24 10:00 11/28/24 09:10 5 MG Metoprolol Succinate 50 mg DAILY PO 11/27/24 10:00 11/28/24 09:10 50 MG Patient Own Medication 1 tab DAILY PO 11/27/24 10:00 UNV Lidocaine 1 patch DAILY TOP 11/27/24 10:00 11/28/24 09:11 1 PATCH Enoxaparin Sodium 70 mg Q12HR SC 11/27/24 10:00 UNV Enoxaparin Sodium 70 mg BID SC 11/27/24 10:00 11/28/24 09:11 70 MG Atorvastatin Calcium 40 mg HS PO 11/27/24 22:00 11/27/24 21:57 40 MG Acetaminophen/ Hydrocodone Bitart 1 tab Q4HPRN PRN PO 11/27/24 22:45 11/28/24 10:17 1 TAB Patient Own Medication 1 DAILY PO 11/29/24 10:00 UNV Aspirin 81 mg DAILY PO 11/29/24 10:00 Examination General examination- awake, alert, oriented HEENT- PEERLA, no acute nasal discharge Cardiovascular- S1-S2 audible, rate and rhythm regular, no murmur Respiratory- CTAB, no wheeze or rhonchi Gastrointestinal-nontender, bowel sound+. Nondistended Musculoskeletal-no acute joint swelling or tenderness or redness Lower extremity- no leg edema Neurological- cranial nerves intact, no acute dysarthria or dysphagia Psychiatry- denies depression or SI or HI Skin- no acute rash or purpura laboratory and microbiology Laboratory Tests 11/28/24 05:03 Test 11/28/24 05:03 Range/Units Serum Glucose 126 H 74-106 mg/dL Problem List/Assessment/Plan Problem List/Assessment/Plan Assessment and plan #? cardiac arrhythmia ?atrial fibrillation with rapid ventricular rate-reverted to sinus rhythm -continue Lovenox 70 b.i.d. -continue metoprolol 50 mg p.o. daily -pending echo 2D report #Hypertensive urgency -continue metoprolol 50 mg p.o. daily -amlodipine 5 mg p.o. daily -monitor BP #NSTEMI, likely type II secondary to above -continue metoprolol 50 mg p.o. daily -atorvastatin 40 mg p.o. q.h.s. -amlodipine 5 mg p.o. daily #Severe coronary artery disease status post triple-vessel CABG in 2021 -continue current manage #Rule out structural heart disease -pending echo 2D report # diabetes mellitus type 2 -HGB A1c 7.2. -insulin sliding scale as prescribed #Dyslipidemia -continue atorvastatin 40 mg p.o. q.d. #Thyroid disease -continue levothyroxine 50 mg p.o. q.d. #Obesity -patient was counseled about the effect of obesity on health # osteoarthritis of bilateral hip -continue Tylenol p.r.n. as prescribed # hypokalemia mild -supplement Goals of care, Code status ; discussed with >15 minutes PUD prophylaxis: Pantoprazole DVT prophylaxis: Lovenox Plan discussed with Dr. Vang , nursing staff, patient Total time spent on patient evaluation, chart review, assessment and plan, discussion discussion >35 minutes Plan discussed with: Patient, Other (RN) My Orders My Orders Orders - PS ROMAN Procedure Category Date Status Time Pt Request For Service PT 11/28/24 Logged 07:09 Pt Request For Service PT 11/28/24 Logged 11:08 Date of Service: Nov 28, 2024 Billing Provider: ADDIE PARRA MD Common Visit Codes: [id number] INP/OBS CARE(HIGH) SP ROMAN Nov 28, 2024 14:48 ADDIE PARRA MD Dec 03, 2024 09:40
[2024-11-28] MEDS ORDERED: DEXTROSE (50%) 50ML SYRG IV PRN (15:00)
[2024-11-28] MEDS ORDERED: VENLAFAXINE HCL PO SCH (16:30)
[2024-11-28] MEDS: FUROSEMIDE 40 MG TAB PO SCH (17:10)
[2024-11-28] MEDS: POTASSIUM CHL 10 Meq TABLET PO SCH (17:11)
[2024-11-28] MEDS: ACCU-CHEK COMFORT CURVE STRIP VI SCH (17:28)
[2024-11-28] MEDS: InsuLIN REG 1unit/0.01ml Soln (100units/ml) SC SCH (17:31)
[2024-11-28] MEDS: BACLOFEN 10 MG TAB PO ONE (17:45)
[2024-11-29 05:00] VITALS: BP 118/67; PULSE 68; TEMP 97.7; O2SAT 93
[2024-11-29 06:28] LABS: Anion Gap 10 (5-15); Carbon Dioxide 27 mmol/L (20-31); Chloride 102 mmol/L (98-107); Potassium 3.5 mmol/L (3.5-5.1); Sodium 139 mmol/L (136-145)
[2024-11-29 06:29] LABS: Calcium 8.9 mg/dL (8.7-10.4)
[2024-11-29 06:30] LABS: Hematocrit 38.4 % (36.0-46.0); Hemoglobin 12.5 g/dL (12.2-16.2); Mean Corpuscular Hemoglobin 33.1 pg (28.0-32.0); Mean Corpuscular Hgb Conc. 32.7 g/dL (32.0-36.0); Mean Corpuscular Volume 101.3 fL (80.0-100.0); Platelet Count (auto) 229 10^3/uL (140-450); Red Blood Cells 3.79 10^6/uL (4.0-5.20); Red Cell Distribution Width 15.8 % (11.8-14.3); White Blood Cell 9.5 10^3/uL (4.4-10.8)
[2024-11-29 06:33] LABS: Glucose 88 mg/dL (74-106)
[2024-11-29 06:34] LABS: BUN/Creatinine Ratio 23.9 (10.0-20.0); Blood Urea Nitrogen 22 mg/dL (9-23); Magnesium 1.9 mg/dL (1.6-2.6)
[2024-11-29 06:39] LABS: Band Neutrophils % (manual) 0; Basophils % (manual) 0 (0.0-2.0); Blast Cells 0; Metamyelocytes % 0; Promyelocytes % 0; Reactive Lymphocytes 0
[2024-11-29 07:00] LABS: Eosinophils % (manual) 4 (0-7); Lymphocytes % (manual) 14 (10.0-50.0); Macrocytosis Slight; Monocytes % (manual) 11 (0-12); Myelocytes % 1; Platelet Estimate Adequate
--- NOTE | 2024-11-29 07:03 | DVHDSRES ---
Discharge Summary Date of Admission Resident Creating Document: SP ROMAN RESIDENT Nov 27, 2024 at 01:51 Date of Discharge: Nov 29, 2024 Admitting Diagnosis Hypertensive urgency with a atrial fibrillation Labs/Diagnostic Data: Laboratory Results Test 11/29/24 06:30 11/29/24 06:06 11/29/24 04:37 11/28/24 05:03 POC Glucose 102 mg/dl (70-106) White Blood Count 9.5 10^3/uL (4.4-10.8) Red Blood Count 3.79 10^6/uL (4.0-5.20) Hemoglobin 12.5 g/dL (12.2-16.2) Hematocrit 38.4 % (36.0-46.0) Mean Corpuscular Volume 101.3 fL (80.0-100.0) Mean Corpuscular Hemoglobin 33.1 pg (28.0-32.0) Mean Corpuscular Hemoglobin Concent 32.7 g/dL (32.0-36.0) Red Cell Distribution Width 15.8 % (11.8-14.3) Platelet Count 229 10^3/uL (140-450) Mean Platelet Volume 7.2 fL (6.9-10.8) Neutrophils (%) (Auto) % (37.0-80.0) Lymphocytes (%) (Auto) % (10.0-50.0) Monocytes (%) (Auto) % (0.0-12.0) Basophils (%) (Auto) % (0.0-2.0) Neutrophils # (Auto) 10 ^3/uL (1.6-8.6) Lymphocytes # (Auto) 10 ^3/uL (0.4-5.4) Monocytes # (Auto) 10 ^3/uL (0-1.3) Sodium Level 139 mmol/L (136-145) Potassium Level 3.5 mmol/L (3.5-5.1) Chloride Level 102 mmol/L (98-107) Carbon Dioxide Level 27 mmol/L (20-31) Anion Gap 10 (5-15) Blood Urea Nitrogen 22 mg/dL (9-23) Creatinine 0.92 mg/dL (0.550-1.02) Glomerular Filtration Rate Calc 63 mL/min (>90) BUN/Creatinine Ratio 23.9 (10.0-20.0) Serum Glucose 88 mg/dL (74-106) Calcium Level 8.9 mg/dL (8.7-10.4) Magnesium Level 1.9 mg/dL (1.6-2.6) Hemoglobin A1c 7.2 % A1C (<5.7) Total Bilirubin 0.5 mg/dL (0.2-1.0) Aspartate Amino Transferase (AST) 19 U/L (13-40) Alanine Aminotransferase (ALT) 23 U/L (7-40) Alkaline Phosphatase 73 U/L (46-116) Total Protein 5.5 g/dL (5.7-8.2) Albumin 3.6 g/dL (3.2-4.8) Triglycerides Level 166 mg/dL (< 150) Cholesterol Level 208 mg/dL (< 200) LDL Cholesterol 127 mg/dL (< 100) HDL Cholesterol 63 mg/dL (40-59) Test 11/28/24 01:10 11/27/24 02:13 11/26/24 19:23 11/26/24 18:19 Influenza Type A Antigen Negative (Negative) Influenza Type B Antigen Negative (Negative) SARS-CoV-2 Antigen (Rapid) Negative (NEGATIVE) Prothrombin Time 10.3 sec (9.3-11.8) Prothrombin Time INR 0.97 (0.9-1.15) Thyroid Stimulating Hormone (TSH) 1.07 uIU/mL (0.55-4.78) Urine Color Colorless (Yellow) Urine Clarity Clear (Clear) Urine pH 7.5 (5.0-9.0) Urine Specific [place] 1.009 (1.001-1.035) Urine Protein Negative (Negative) Urine Ketones Negative (Negative) Urine Blood Negative /uL (Negative) Urine Nitrite Negative (Negative) Urine Bilirubin Negative (Negative) Urine Urobilinogen Normal mg/dL (Negative) Urine Leukocyte Esterase Negative /uL (Negative) Urine RBC 2 /hpf (0 - 4) Urine Microscopic WBC 2 /HPF (0-5) Urine Squamous Epithelial Cells Few /hpf (<5) Urine Bacteria None seen /hpf (None Seen) Urine Glucose Normal mg/dL (Normal) Troponin I High Sensitivity 206 ng/L (</=34) Test 11/26/24 15:17 Eosinophils (%) (Auto) 1.1 % (0.0-7.0) Eosinophils # (Auto) 0.1 10 ^3/uL (0-0.8) Basophils # (Auto) 0 10 ^3/uL (0-0.2) Nucleated Red Blood Cells 0.1 % Other Laboratory Tests 11/29/24 04:37 Brief Hx & Hospital Course: Patient is an 79-year-old female with past medical history of CABG in 2021, hypertension, depression, dyslipidemia, GERD, history of osteoarthritis, esophageal stricture, who was transferred from [facility] due to atrial fibrillation. Patient went to [facility] for worsening right knee pain. As per patient she had a episode of right leg gave up for which she had worked up and no fracture was found but her pain was getting worse. That is why she went to [facility] but during hospital course she was found to have atrial fibrillation and was transferred to [facility]. Initial lab workup revealed leukocytosis WBC 11.5, mild hypo kalemia with potassium 3.4, troponin I 239> 240> 206. X-ray of the right knee negative for acute fracture. X-ray hip revealed bilateral hip osteoarthritis. CXR revealed-Postoperative changes of the heart without evidence of acute intrathoracic process. Hospital course-patient is 79 years old female transferred from [facility] for atrial fibrillation. On arrival patient was in sinus rhythm. Initial lab workup revealed leukocytosis WBC 11.5, mild hypo kalemia with potassium 3.4, troponin I 239> 240> 206. X-ray of the right knee negative for acute fracture. X-ray hip revealed bilateral hip osteoarthritis. CXR revealed- Postoperative changes of the heart without evidence of acute intrathoracic process. patient was seen by Cardiology, recommendation reviewed and appreciated. On telemetry and EKG no evidence of atrial fibrillation. Patient is being discharged home today. Patient's meds were sent to the pharmacy electronically. Patient was hemodynamically stable on discharge. Assessment #Hypertensive urgency # sinus tachycardia, AF ruled out/likely resolved from previous episode at [facility] #Severe coronary artery disease status post triple-vessel CABG in 2021 #NSTEMI, likely type II secondary to above #Dyslipidemia #Thyroid disease #Obesity # osteoarthritis of bilateral hip Discharge plan Operations or Procedures [facility] [address] [facility] [address] Ph: [phone] DIAGNOSTIC IMAGING Diagnostic Imaging Report : [id number] Signed PATIENT: DALLAS SUN MRIEACCT: [id number] UNIT: [id number] : 1945 [facility]GE / SEX: 79 / F ADM STATUS: ADM IN SERVICE 32 ORDERING PHYSICIAN: SP ROMAN PROCEDURE(s): RKNE2 - R KNEE 2V XRAY REASON: OA/Fracture ORDER NUMBER(s): [id number], ACCESSION NUMBER(s): [id number] EXAM: XY R KNEE 2V XRAY CLINICAL INDICATION: OA/Fracture TECHNIQUE: XY R KNEE 2V XRAY Comparison: None FINDINGS/IMPRESSION: There is no evidence of acute fracture or dislocation. Moderate right knee osteoarthritis The alignment is anatomical. There is no radiopaque foreign body. ATED BY: DIONICIO DOMÍNGUEZ MD DICTATED DATE/TIME: 11/27/24 1508 SIGNED BY: DIONICIO DOMÍNGUEZ MD SIGNED DATE/TIME: 11/27/24 1508 CC: [place] [address] Ph: [phone] DIAGNOSTIC IMAGING Diagnostic Imaging Report : [id number] Signed PATIENT: DALLAS SUN MRIEACCT: [id number] UNIT: [id number] : 1945 LOC: [facility] AGE / SEX: 79 / F ADM STATUS: ADM IN SERVICE 133 ORDERING PHYSICIAN: SP ROMAN PROCEDURE(s): RHIP - R HIP COMPLETE XRAY REASON: FRACTURE/OA ORDER NUMBER(s): [id number], ACCESSION NUMBER(s): [id number] EXAM: XY R HIP COMPLETE XRAY CLINICAL INDICATION: FRACTURE/OA TECHNIQUE: XY R HIP COMPLETE XRAY Comparison: None FINDINGS/IMPRESSION: There is no evidence of acute fracture or dislocation. Moderate bilateral hip osteoarthritis. The alignment is anatomical. There is no radiopaque foreign body. ATED BY: DIONICIO DOMÍNGUEZ MD DICTATED DATE/TIME: 11/27/241511 SIGNED BY: DIONICIO DOMÍNGUEZ MD SIGNED DATE/TIME: 11/27/241511 CC: [address] [address] Ph: [phone] DIAGNOSTIC IMAGING Diagnostic Imaging Report : [id number] Signed PATIENT: DALLAS SUN ACCT: [id number] UNIT: [id number] : 1945 LOC: ER ROOM / BED: / AGE / SEX: 79 / F ADM STATUS: REG ER SERVICE 150 ORDERING PHYSICIAN: TIMOTHY ZAMORA MD PROCEDURE(s): CXRP - CHEST PORTABLE REASON: sob ORDER NUMBER(s): [id number], ACCESSION NUMBER(s): [id number] EXAM: XY CHEST PORTABLE HISTORY: sob COMPARISON: None TECHNIQUE: Portable AP view of the chest was performed. FINDINGS: No pneumothorax, consolidative infiltrates, or pulmonary edema. The heart is not enlarged. There are postoperative changes of CABG. There is right glenohumeral osteoarthritis with prominent marginal osteophytes extending inferiorly. The left humeral head is high-riding, consistent with significant rotator cuff tendinopathy. There is thoracic spondylosis. There is thoracolumbar levoscoliosis. IMPRESSION: Postoperative changes of the heart without evidence of acute intrathoracic process. ATED BY: MALI VALDERRAMA MD DICTATED DATE/TIME: 11/26/24 1558 SIGNED BY: MALI VALDERRAMA MD SIGNED DATE/TIME: 11/26/24 1558 CC: Condition at Discharge: Stable Final Diagnosis/Problems List #Hypertensive urgency # sinus tachycardia, AF ruled out #Severe coronary artery disease status post triple-vessel CABG in 2021 #NSTEMI, likely type II secondary to above #Dyslipidemia #Thyroid disease #Obesity # osteoarthritis of bilateral hip Discharge Disposition: Home Discharge Instruct/Medications Follow Up/Referral: Follow up with the primary care physician in 1 week Please follow up with the trim mounter for further workup Discharge Statement: "Patient was advised to return to the ER or call 911 if any headaches, dizziness, shortness of breath, chest pain, abdominal pain, bleeding, fevers, or worsening of medical condition. Patient was counseled about treatment plan, medications, possible side effects, patientverbalized understanding. All questions were answered to the best of my ability. This discharge took greater then 30 minutes in planning, reviewing documentation, counseling the patient, and discussing with other team members." ASSESSMENT ASSESSMENT Assessment SP ROMAN RESIDENT Nov 29, 2024 07:03
[2024-11-29 08:00] VITALS: PULSE 83; O2SAT 95
[2024-11-29 09:00] VITALS: BP 146/75; PULSE 84; RESP 16; TEMP 98.1; O2SAT 93
--- NOTE | 2024-11-29 09:45 | DVHSR ---
APPROVED REPORT EXAM: Two-dimensional and M-mode echocardiogram with Doppler and color Doppler. Blood Pressure: /76 mmHg INDICATION new onset afib Surgery/Intervention CABG: RISK FACTORS Height: 5'2, Weight: 159 DIMENSIONS LVDd3.7 (3.8-5.7cm)LA (2D)3.2 (1.9-4.0cm)Aortic Root3.5 (2.0-3.7cm) LVDs2.7 (2.5-4.0cm)LA (MM) (1.9-4.0cm)Aortic Cusp Exc0.9 (1.5-2.0cm) EF (%) 50.0 (55-70%)Rt. Atrium2.7 (1.9-4.0cm)Asc. Aorta3.1 cm IVSd1.3 (0.7-1.1cm)RV (D) (1.8-2.4cm) PWd0.9 (0.7-1.1cm) Mitral Valve MitralMitral Stenosis E wave0.49m/sMV Mean GR.mmHg A wave1.06m/sMV Peak GR.80mmHg E/A ratio0.52D MVAcm2 DECEL [id number] 1/2 [place] Aortic Valve Aortic ValveAortic Stenosis V11.02m/Aki Mean GR.8mmHg V21.90m/Aki Peak GR.14mmHg LVOT Diameter2.1 (1.8-2.4cm)Doppler AVA1.86cm2 Pulmonic Valve V21.08m/s Tricuspid Valve TR Velocity2.34m/s [id number] Other Information Quality : Technically LimitedRhythm : Technically limited study due to patient position.body habitus. Conclusion Technically good study. Sinus rhythm. Concentric LVH. Mild aortic root enlargement. Mild dilation of the sinuses of Valsalva. Mild aortic sclerosis. The mitral tricuspid and pulmonic or structurally normal. Left ventricular function is mildly diminished. EF is about 45% with anterior wall abnormal septal m otion and mild asynchrony and dyskinesis. Right ventricular function appears to be normal. There is trace aortic insufficiency. Mild tricuspid regurgitation. No pericardial effusion masses or vegetations discernible.
[2024-11-29] MEDS: hydroCHLOROthiazide 25 MG TAB PO SCH (09:58)
[2024-11-29] MEDS: ASPirin 81 mg TAB PO SCH (09:58)
[2024-11-29] MEDS: METOPROLOL SUCCINATE XL 50 MG TAB PO SCH (09:59)
[2024-11-29] MEDS ORDERED: PATIENTS OWN MEDICATION PO SCH (10:00)
[2024-11-29] MEDS: VENLAFAXINE HCL 37.5mg XR cap PO SCH (11:38)
[2024-11-29 13:00] VITALS: BP 142/76; PULSE 84; RESP 17; TEMP 98.3; O2SAT 95
[2024-11-29] MEDS ORDERED: BACL5TAB2 PO ×2 (14:46→14:49)
[2024-11-29] MEDS ORDERED: HYDR-4798 PO (14:53)
[2024-11-29 15:16] VITALS: BP 146/75; PULSE 84; TEMP 36.8
[2024-11-29 15:50] LABS: Opiate Scree,Urine Pos (NEGATIVE)
[2024-11-29 15:52] LABS: Amphetamine Screen, Urine Neg (NEGATIVE); Barbiturate Scree,Urine Neg (NEGATIVE); Benzodiazephine Screen, Urine Neg (NEGATIVE); Cannabinoid Screen, Urine Neg (NEGATIVE); Cocaine Screen, Urine Neg (NEGATIVE); Phencyclidine Screen, Urine Neg (NEGATIVE)
[2024-11-29 17:00] VITALS: BP 113/65; PULSE 62; RESP 16; TEMP 98; O2SAT 98
[2024-11-29] MEDS ORDERED: BACLOFEN 10 MG TAB PO SCH (22:00)
== END 2024-11-29 17:19 | disposition home or self-care (01) | DRG 282 ==
LOC: EDBD 14:48 → ER 14:48 → OVERFLOW 11-27 01:51 → TELE-WESTW 11-27 04:39
PROVIDERS: ADMIT Student in an Organized Health Care Education/Training Program; ATTEND Student in an Organized Health Care Education/Training Program
DX: I16.0 Hypertensive urgency (principal); I21.A1 Myocardial infarction type 2; I25.10 Atherosclerotic heart disease of native coronary artery without angina pectoris; I10 Essential (primary) hypertension; E78.5 Hyperlipidemia, unspecified; K21.9 Gastro-esophageal reflux disease without esophagitis; F32.A Depression, unspecified; E66.9 Obesity, unspecified; E07.9 Disorder of thyroid, unspecified; E87.6 Hypokalemia; M16.0 Bilateral primary osteoarthritis of hip; Z79.899 Other long term (current) drug therapy; Z95.1 Presence of aortocoronary bypass graft; Z68.29 Body mass index [BMI] 29.0-29.9, adult
CPT/HCPCS: 36415; 71045; 73502; 73560; 80048; 80053; 80061; 80307; 81001; 82962; 83036; 83735; 84443; 84484; 85007; 85025; 85027; 85610; 87426; 87804; 93005; 93306; 97110; 97116; 97163; 97530; G0378; J1815